=== PATIENT | female | born 1955 | race Caucasian/White ===

== ENCOUNTER 2024-08-12 12:35 | Emergency (ER) | payer BC, MEDICARE ==
[2024-08-12] MEDS: Amoxicillin/Clavulanate K 875-125 MG Tab PO ONE (14:12)
[2024-08-12] MEDS: Lidocaine 1% with EPINEPHrine 1:100,000 20 ML MDV INJECT ONE (14:16)
[2024-08-12] MEDS: Bacitracin/Neomycin/Polymyxin B Oint 0.9 GM U/D Packet TOP ONE (14:53)
== END 2024-08-12 15:21 | disposition home or self-care (01) ==
LOC: KA.ED 12:40
DX: S51.812A Laceration without foreign body of left forearm, initial encounter (principal); I10 Essential (primary) hypertension; E78.00 Pure hypercholesterolemia, unspecified; Z79.899 Other long term (current) drug therapy; Z88.2 Allergy status to sulfonamides; W54.0XXA Bitten by dog, initial encounter
CPT/HCPCS: 12002; 73090-LT; 99283; A9270-GY; J2004